=== PATIENT | male | born 1990 | race Caucasian/White ===

== ENCOUNTER 2022-02-16 16:36 | Inpatient (IN) | payer OTHER, SELFPAY ==
[~2022-02-16 16:36] MED LIST: Iopamidol-370 76% 500 ML 1 ML ONE
[2022-02-16] MEDS ORDERED: Ketamine 50 MG/ML (10ML VIAL) ONE (16:44)
[2022-02-16] MEDS ORDERED: Rocuronium Bromide 10 MG/ML (10ML VIAL) ONE ×2 (16:47→18:12)
[2022-02-16 17:00] LABS: Mean Corpuscular HGB CONC 32.8 g/dL (32.0-36.0); Mean Corpuscular Hemoglobin 30.5 pg (27.0-31.0); Mean Corpuscular Volume 93.1 fL (78.0-98.0); Mean Platelet Volume 7.1 fL (7.4-10.4); Platelet Count 307 thou/uL (130-400); Red Blood Cell (RBC) Count 4.93 mill/uL (4.70-6.10); White Blood Cell (WBC) Count 23.8 thou/uL (4.8-10.8)
[2022-02-16] MEDS ORDERED: Propofol 1,000 MG/100 ML VIAL IV ONE (17:03)
[2022-02-16 17:15] LABS: Band 9 % (5-11); Lymphocytes 10 % (21-51); MDiff Complete? YES; Monocytes 7 % (0-10); Neutrophil 73 % (42-75); Platelet Morphology Comment Appears Adequate; RBC Morphology Normal
[2022-02-16 17:20] LABS: ALT (SGPT) 40 U/L (8-55); AST (SGOT) 37 U/L (5-34); Albumin 3.6 g/dL (3.5-5.0); Alkaline Phosphatase 39 U/L (40-110); Anion Gap 13 mmol/L (10-20); BUN (Urea Nitrogen) 19 mg/dL (8.9-20.6); Bilirubin, Total 0.4 mg/dL (0.2-1.2); Calc. Creatinine Clearance 0 mL/min (70-130); Calcium 7.9 mg/dL (7.8-10.44); Carbon Dioxide 22 mmol/L (22-29); Chloride 110 mmol/L (98-107); Globulin 2.3 g/dL (2.4-3.5); Glucose 143 mg/dL (70-105); Potassium 3.6 mmol/L (3.5-5.1); Protein, Total 5.9 g/dL (6.0-8.3); Sodium 141 mmol/L (136-145)
[2022-02-16] MEDS ORDERED: fentaNYL Citrate/PF 100 MCG/2 ML SYRINGE ONE ×2 (17:42→19:29)
[2022-02-16] MEDS ORDERED: Midazolam HCl 2 mg/2 ml Vial ONE (17:42)
[2022-02-16] MEDS ORDERED: Albumin 5% 0 ML ONE (17:53)
[2022-02-16 17:54] LABS: Actual Bicarbonate (HCO3a) 20.1 mEq/L (22-28); Analyzer IN Cardio ER; Base Excess (BEa) -5.5 mEq/L (-2.0 to +3.0); CO2 Tension 39.7 mmHg (35.0-45.0); Calcium, Ionized (arterial) 1.11 mmol/L (1.12-1.30); Carboxyhemoglobin (COHb) 0.3 gm% (0.0-3.0); Hemoglobin (Hb) 14.1 g/dL (14.0-18.0); Potassium - ABG Lab 3.24 mmol/L (3.70-5.30); Puncture Site RBA; pH, Arterial 7.32 (7.35-7.45)
[2022-02-16 17:55] LABS: ALV-art Gradient 114.875 mmHg (0-20)
[2022-02-16] MEDS ORDERED: Dextrose 50% Abboject 50 ML SYRINGE SLOW IVP PRN (18:05)
[2022-02-16] MEDS ORDERED: Ondansetron PF 4 MG/2 ML Vial IVP PRN ×2 (18:05→19:41)
[2022-02-16] MEDS ORDERED: Ondansetron ODT 4 MG TAB PO PRN (18:05)
[2022-02-16] MEDS ORDERED: Dextrose 5% in Water 1,000 ML IV PRN (18:05)
[2022-02-16] MEDS ORDERED: Ondansetron PF 4 MG/2 ML Vial ONE (18:12)
[2022-02-16] MEDS ORDERED: PHENYLEPHRINE-NS 100 MCG/ML 10 ML SYRINGE ONE ×2 (18:12→18:32)
[2022-02-16] MEDS ORDERED: Dexamethasone 20 MG/5 ML VIAL ONE (18:12)
[2022-02-16] MEDS ORDERED: Acetaminophen 325 MG TAB PO SCH (18:15)
[2022-02-16 18:18] LABS: SARS-CoV-2 NAA Rapid Test Not Detected (NotDetected)
[2022-02-16] MEDS ORDERED: Ibuprofen 200 MG TAB PO SCH (18:30)
[2022-02-16] MEDS ORDERED: HYDROcodone/Acetaminophen 10/325 mg Tablet PO SCH ×2 (18:30→23:59)
[2022-02-16] MEDS ORDERED: Heparin 5,000 UNITS/ML VIAL ONE (18:47)
[2022-02-16] MEDS ORDERED: Protamine Sulfate 50 MG/5 ML VIAL ONE (18:48)
[2022-02-16] MEDS ORDERED: HYDROmorphone 2 MG/ML VIAL ONE (19:09)
[2022-02-16] MEDS ORDERED: SUGAMMADEX SODIUM 200 MG/2 ML VIAL ONE (19:10)
[2022-02-16] MEDS ORDERED: diphenhydrAMINE 25 MG CAP PO PRN (19:41)
[2022-02-16] MEDS ORDERED: Promethazine HCl 25 MG/ML VIAL IVPB PRN (19:41)
[2022-02-16] MEDS ORDERED: diphenhydrAMINE 50 MG/ML VIAL IM PRN (19:41)
[2022-02-16] MEDS ORDERED: Ondansetron HCl/PF 4 MG/2 ML Vial IVP PRN (19:41)
[2022-02-16] MEDS ORDERED: diphenhydrAMINE 50 MG/ML VIAL IVP PRN (19:41)
[2022-02-16] MEDS ORDERED: Naloxone HCl 0.4 mg/ml Vial IV PRN (19:41)
[2022-02-16] MEDS ORDERED: Promethazine HCl 25 MG/ML VIAL IM PRN ×2 (19:41)
[2022-02-16] MEDS ORDERED: Communication Order-Pharmacy FS SCH (19:45)
[2022-02-16] MEDS ORDERED: Fentanyl 100 MCG/2 ML VIAL ONE (19:46)
[2022-02-16 21:54] LABS: Hemoglobin 13.5 g/dL (14.0-18.0); Mean Corpuscular HGB CONC 31.9 g/dL (32.0-36.0); Mean Corpuscular Hemoglobin 29.9 pg (27.0-31.0); Mean Corpuscular Volume 93.8 fL (78.0-98.0); Mean Platelet Volume 7.1 fL (7.4-10.4); Platelet Count 342 thou/uL (130-400); White Blood Cell (WBC) Count 23.7 thou/uL (4.8-10.8)
[2022-02-16] MEDS: Lactated Ringer's 1,000 ML IV SCH (21:57)
[2022-02-16] MEDS: Famotidine 20 MG TAB PO SCH (21:58)
[2022-02-16] MEDS: ceFAZolin (BATCH) 2 GM in Premix Bag 1 BAG IVPB SCH (22:04)
[2022-02-16] MEDS: Acetaminophen 325 MG TAB PO SCH (23:17)
[2022-02-16] MEDS: Ibuprofen 200 MG TAB PO SCH (23:17)
[2022-02-17 03:49] LABS: Hemoglobin 12.2 g/dL (14.0-18.0); Mean Corpuscular HGB CONC 32.5 g/dL (32.0-36.0); Mean Corpuscular Hemoglobin 30.2 pg (27.0-31.0); Mean Platelet Volume 7.2 fL (7.4-10.4); Platelet Count 265 thou/uL (130-400); RBC Distribution Width 12.9 % (11.5-14.5); Red Blood Cell (RBC) Count 4.05 mill/uL (4.70-6.10); White Blood Cell (WBC) Count 15.6 thou/uL (4.8-10.8)
[2022-02-17 03:50] LABS: #Lymphocytes 0.7 thou/uL (1.20-3.40); #Monocytes 1.7 thou/uL (0.11-0.59); #Neutrophils 13.4 thou/uL (1.40-6.50); %Eosinophils 0.1 % (0.0-10.0); %Lymphocytes 4.7 % (21.0-51.0); %Monocytes 10.5 % (0.0-10.0); %Neutrophils 84.6 % (42.0-75.0); Hemoglobin 12.1 g/dL (14.0-18.0); Mean Corpuscular HGB CONC 32.6 g/dL (32.0-36.0); Mean Corpuscular Hemoglobin 30.4 pg (27.0-31.0); Mean Corpuscular Volume 93.5 fL (78.0-98.0); Mean Platelet Volume 7.1 fL (7.4-10.4); Platelet Count 256 thou/uL (130-400); RBC Distribution Width 12.8 % (11.5-14.5); Red Blood Cell (RBC) Count 3.97 mill/uL (4.70-6.10); White Blood Cell (WBC) Count 15.9 thou/uL (4.8-10.8)
[2022-02-17 04:10] LABS: Anion Gap 12 mmol/L (10-20); BUN (Urea Nitrogen) 14 mg/dL (8.9-20.6); Calc. Creatinine Clearance 185 mL/min (70-130); Calcium 7.6 mg/dL (7.8-10.44); Carbon Dioxide 18 mmol/L (22-29); Chloride 109 mmol/L (98-107); Glucose 170 mg/dL (70-105); Magnesium 1.6 mg/dL (1.6-2.6); Phosphorus 3.2 mg/dL (2.3-4.7); Potassium 4.4 mmol/L (3.5-5.1); Sodium 135 mmol/L (136-145)
[2022-02-17] MEDS: Ibuprofen 200 MG TAB PO SCH ×4 (05:13→22:59)
[2022-02-17] MEDS: ceFAZolin (BATCH) 2 GM in Premix Bag 1 BAG IVPB SCH ×3 (05:13→22:52)
[2022-02-17] MEDS: Acetaminophen 325 MG TAB PO SCH ×4 (05:14→22:59)
[2022-02-17] MEDS: Lactated Ringer's 1,000 ML IV SCH ×3 (05:14→17:39)
[2022-02-17] MEDS ORDERED: Magnesium 2 GM/50 ML(in water) 2 GM in Premix Bag 1 BAG IVPB SCH (07:15)
[2022-02-17] MEDS ORDERED: Magnesium Sulfate 3 GM in Sodium Chloride 0.9% 100 ML IVPB SCH (09:00)
[2022-02-17] MEDS: Ascorbic Acid 500 mg Chewable Tablet PO SCH ×2 (09:17→20:20)
[2022-02-17] MEDS: Famotidine 20 MG TAB PO SCH ×2 (09:17→20:20)
[2022-02-17] MEDS: Senokot S 8.6-50 MG TAB PER TUBE SCH ×2 (09:18→20:20)
[2022-02-17] MEDS: Gabapentin 300 MG CAP PO SCH ×3 (09:18→20:20)
[2022-02-17] MEDS: traMADol HCl 50 MG TAB PO SCH ×3 (11:37→22:59)
[2022-02-17] MEDS: fentaNYL Citrate/PF 2,000 MCG in Sodium Chloride 0.9% 60 ML IV PRN (17:40)
[2022-02-18] MEDS: Lactated Ringer's 1,000 ML IV SCH ×2 (05:14→13:37)
[2022-02-18] MEDS: ceFAZolin (BATCH) 2 GM in Premix Bag 1 BAG IVPB SCH ×3 (05:48→22:05)
[2022-02-18] MEDS: Ibuprofen 200 MG TAB PO SCH ×4 (05:49→23:41)
[2022-02-18] MEDS: Acetaminophen 325 MG TAB PO SCH ×4 (05:49→23:40)
[2022-02-18] MEDS: traMADol HCl 50 MG TAB PO SCH ×4 (05:49→23:40)
[2022-02-18 05:58] LABS: #Basophils 0.1 thou/uL (0.0-0.2); #Eosinphils 0.1 thou/uL (0.0-0.7); #Lymphocytes 2.1 thou/uL (1.20-3.40); #Monocytes 1.1 thou/uL (0.11-0.59); #Neutrophils 7.4 thou/uL (1.40-6.50); %Basophils 0.5 % (0.0-1.0); %Eosinophils 1.4 % (0.0-10.0); %Lymphocytes 19.4 % (21.0-51.0); %Monocytes 9.8 % (0.0-10.0); %Neutrophils 68.9 % (42.0-75.0); Hemoglobin 9.6 g/dL (14.0-18.0); Mean Corpuscular HGB CONC 32.4 g/dL (32.0-36.0); Mean Corpuscular Hemoglobin 30.2 pg (27.0-31.0); Mean Platelet Volume 7.2 fL (7.4-10.4); Platelet Count 239 thou/uL (130-400); RBC Distribution Width 12.9 % (11.5-14.5); Red Blood Cell (RBC) Count 3.17 mill/uL (4.70-6.10); White Blood Cell (WBC) Count 10.7 thou/uL (4.8-10.8)
[2022-02-18 06:38] LABS: Anion Gap 8 mmol/L (10-20); BUN (Urea Nitrogen) 9 mg/dL (8.9-20.6); Calc. Creatinine Clearance 206 mL/min (70-130); Calcium 8.1 mg/dL (7.8-10.44); Carbon Dioxide 27 mmol/L (22-29); Chloride 106 mmol/L (98-107); Glucose 91 mg/dL (70-105); Magnesium 1.7 mg/dL (1.6-2.6); Phosphorus 2.5 mg/dL (2.3-4.7); Potassium 4.1 mmol/L (3.5-5.1); Sodium 137 mmol/L (136-145)
[2022-02-18] MEDS ORDERED: Magnesium 2 GM/50 ML(in water) 3 GM in Premix Bag 1 BAG IVPB SCH (06:45)
[2022-02-18] MEDS ORDERED: Magnesium Sulfate 3 GM, Admixture Fee 1 EACH in Sodium Chloride 0.9% 100 ML IVPB SCH (07:00)
[2022-02-18] MEDS: Famotidine 20 MG TAB PO SCH ×2 (07:49→20:08)
[2022-02-18] MEDS: Ascorbic Acid 500 mg Chewable Tablet PO SCH ×2 (07:49→20:08)
[2022-02-18] MEDS: Gabapentin 300 MG CAP PO SCH ×3 (07:49→20:09)
[2022-02-18] MEDS: Senokot S 8.6-50 MG TAB PER TUBE SCH ×2 (07:49→20:08)
[2022-02-18] MEDS: Polyethylene Glycol 3350 17 GM Packet PO SCH (07:49)
[2022-02-18] MEDS: traMADol HCl 50 MG TAB PO PRN (15:48)
[2022-02-18] MEDS: fentaNYL Citrate/PF 2,000 MCG in Sodium Chloride 0.9% 60 ML IV PRN (21:25)
[2022-02-19] MEDS: Lactated Ringer's 1,000 ML IV SCH ×2 (00:22→08:23)
[2022-02-19] MEDS: Ibuprofen 200 MG TAB PO SCH ×4 (05:05→23:29)
[2022-02-19] MEDS: traMADol HCl 50 MG TAB PO SCH ×4 (05:05→23:29)
[2022-02-19] MEDS: Acetaminophen 325 MG TAB PO SCH ×2 (05:06→11:29)
[2022-02-19 05:41] LABS: #Eosinphils 0.5 thou/uL (0.0-0.7); #Lymphocytes 1.8 thou/uL (1.20-3.40); #Monocytes 0.8 thou/uL (0.11-0.59); #Neutrophils 5.3 thou/uL (1.40-6.50); %Basophils 0.5 % (0.0-1.0); %Eosinophils 5.7 % (0.0-10.0); %Lymphocytes 21.8 % (21.0-51.0); %Monocytes 9.8 % (0.0-10.0); %Neutrophils 62.2 % (42.0-75.0); Hemoglobin 8.5 g/dL (14.0-18.0); Mean Corpuscular HGB CONC 32.4 g/dL (32.0-36.0); Mean Corpuscular Hemoglobin 30.2 pg (27.0-31.0); Mean Corpuscular Volume 93.3 fL (78.0-98.0); Mean Platelet Volume 6.5 fL (7.4-10.4); Platelet Count 228 thou/uL (130-400); RBC Distribution Width 12.7 % (11.5-14.5); Red Blood Cell (RBC) Count 2.81 mill/uL (4.70-6.10); White Blood Cell (WBC) Count 8.5 thou/uL (4.8-10.8)
[2022-02-19 06:10] LABS: Anion Gap 9 mmol/L (10-20); BUN (Urea Nitrogen) 7 mg/dL (8.9-20.6); Calc. Creatinine Clearance 214 mL/min (70-130); Calcium 8.1 mg/dL (7.8-10.44); Carbon Dioxide 28 mmol/L (22-29); Chloride 107 mmol/L (98-107); Glucose 85 mg/dL (70-105); Magnesium 1.8 mg/dL (1.6-2.6); Phosphorus 3.4 mg/dL (2.3-4.7); Potassium 3.9 mmol/L (3.5-5.1); Sodium 140 mmol/L (136-145)
[2022-02-19] MEDS: Polyethylene Glycol 3350 17 GM Packet PO SCH (08:29)
[2022-02-19] MEDS: Ascorbic Acid 500 mg Chewable Tablet PO SCH ×2 (08:29→19:52)
[2022-02-19] MEDS: Gabapentin 300 MG CAP PO SCH ×3 (08:29→19:51)
[2022-02-19] MEDS: Senokot S 8.6-50 MG TAB PER TUBE SCH ×2 (08:29→19:52)
[2022-02-19] MEDS: Famotidine 20 MG TAB PO SCH ×2 (08:30→19:52)
[2022-02-19] MEDS ORDERED: ceFAZolin (BATCH) 2 GM in Premix Bag 1 BAG IVPB SCH (08:45)
[2022-02-19] MEDS: traMADol HCl 50 MG TAB PO PRN (14:43)
[2022-02-19] MEDS: Acetaminophen 500 MG TAB PO SCH ×2 (17:51→23:28)
[2022-02-20] MEDS ORDERED: Sodium Chloride 0.9% 1,000 ML IV SCH
[2022-02-20] MEDS: traMADol HCl 50 MG TAB PO SCH ×4 (05:16→23:51)
[2022-02-20] MEDS: Acetaminophen 500 MG TAB PO SCH ×4 (05:16→23:51)
[2022-02-20] MEDS: Ibuprofen 200 MG TAB PO SCH ×3 (05:16→18:35)
[2022-02-20 05:19] LABS: #Eosinphils 0.5 thou/uL (0.0-0.7); #Lymphocytes 1.5 thou/uL (1.20-3.40); #Monocytes 0.7 thou/uL (0.11-0.59); #Neutrophils 5.4 thou/uL (1.40-6.50); %Basophils 0.6 % (0.0-1.0); %Eosinophils 6.5 % (0.0-10.0); %Lymphocytes 18.3 % (21.0-51.0); %Monocytes 8.8 % (0.0-10.0); %Neutrophils 65.9 % (42.0-75.0); Hemoglobin 8.6 g/dL (14.0-18.0); Mean Corpuscular HGB CONC 32.6 g/dL (32.0-36.0); Mean Corpuscular Hemoglobin 30.3 pg (27.0-31.0); Mean Platelet Volume 6.3 fL (7.4-10.4); Platelet Count 278 thou/uL (130-400); Red Blood Cell (RBC) Count 2.83 mill/uL (4.70-6.10); White Blood Cell (WBC) Count 8.2 thou/uL (4.8-10.8)
[2022-02-20 05:54] LABS: Anion Gap 10 mmol/L (10-20); BUN (Urea Nitrogen) 8 mg/dL (8.9-20.6); CK (CPK) 1091 U/L (30-200); Calc. Creatinine Clearance 220 mL/min (70-130); Calcium 8.7 mg/dL (7.8-10.44); Carbon Dioxide 27 mmol/L (22-29); Chloride 107 mmol/L (98-107); Glucose 88 mg/dL (70-105); Magnesium 1.6 mg/dL (1.6-2.6); Phosphorus 4.8 mg/dL (2.3-4.7); Potassium 3.9 mmol/L (3.5-5.1); Sodium 140 mmol/L (136-145)
[2022-02-20] MEDS ORDERED: Magnesium Sulfate In Water 4 GM in Premix Bag 1 BAG IVPB SCH (07:30)
[2022-02-20] MEDS: Ascorbic Acid 500 mg Chewable Tablet PO SCH ×2 (08:31→21:10)
[2022-02-20] MEDS: Famotidine 20 MG TAB PO SCH ×2 (08:31→21:10)
[2022-02-20] MEDS: Senokot S 8.6-50 MG TAB PER TUBE SCH ×3 (08:31→21:10)
[2022-02-20] MEDS: Polyethylene Glycol 3350 17 GM Packet PO SCH (08:31)
[2022-02-20] MEDS: Gabapentin 300 MG CAP PO SCH ×3 (08:31→21:09)
[2022-02-20] MEDS ORDERED: Enoxaparin Sodium 40 MG/0.4 ML SYRINGE SC SCH (09:00)
[2022-02-20] MEDS ORDERED: ceFAZolin (BATCH) 2 GM/100 ML BAG ONE (11:57)
[2022-02-20] MEDS ORDERED: HYDROmorphone 0.5 MG/0.5 ML SYRINGE ONE (12:05)
[2022-02-20] MEDS ORDERED: Fentanyl 250 MCG/5 ML VIAL ONE (12:05)
[2022-02-20] MEDS ORDERED: Vecuronium 10 MG VIAL ONE (12:12)
[2022-02-20] MEDS ORDERED: Glycopyrrolate 0.2 MG/ML 5 ML SYRINGE ONE (12:12)
[2022-02-20] MEDS ORDERED: Ketorolac Tromethamine 30 MG/ML VIAL ONE (12:12)
[2022-02-20] MEDS ORDERED: ePHEDrine 50 MG/ML VIAL ONE (12:12)
[2022-02-20] MEDS ORDERED: PHENYLEPHRINE-NS 100 MCG/ML 10 ML SYRINGE ONE (12:12)
[2022-02-20] MEDS ORDERED: Lidocaine 1% PF 5 ML VIAL ONE (12:12)
[2022-02-20] MEDS ORDERED: Ondansetron PF 4 MG/2 ML Vial ONE (12:12)
[2022-02-20] MEDS ORDERED: Dexamethasone 20 MG/5 ML VIAL ONE (12:12)
[2022-02-20] MEDS ORDERED: Metoclopramide HCl 10 MG/2 ML VIAL ONE (12:12)
[2022-02-20] MEDS ORDERED: PROPOFOL 200 MG/20 ML VIAL ONE (12:12)
[2022-02-20] MEDS ORDERED: Rocuronium Bromide 10 MG/ML (10ML VIAL) ONE (12:12)
[2022-02-20] MEDS ORDERED: HYDROmorphone 2 MG/ML VIAL ONE (14:00)
[2022-02-20] MEDS ORDERED: Albumin 5% 500 ML ONE (14:04)
[2022-02-20] MEDS ORDERED: HYDROcodone/Acetaminophen 10/325 mg Tablet PO PRN ×2 (15:58)
[2022-02-20] MEDS ORDERED: Ketorolac Tromethamine 30 MG/ML VIAL IVP SCH (19:45)
[2022-02-20] MEDS: ceFAZolin (BATCH) 2 GM in Premix Bag 1 BAG IVPB SCH (21:10)
[2022-02-20] MEDS: Ketorolac Tromethamine 30 MG/ML VIAL IVP SCH (23:51)
[2022-02-21] MEDS: ceFAZolin (BATCH) 2 GM in Premix Bag 1 BAG IVPB SCH ×3 (03:45→20:37)
[2022-02-21 05:21] LABS: #Monocytes 1.6 thou/uL (0.11-0.59); #Neutrophils 11.4 thou/uL (1.40-6.50); %Basophils 0.1 % (0.0-1.0); %Eosinophils 0.1 % (0.0-10.0); %Lymphocytes 7.3 % (21.0-51.0); %Monocytes 11.3 % (0.0-10.0); %Neutrophils 81.2 % (42.0-75.0); Mean Corpuscular HGB CONC 33.4 g/dL (32.0-36.0); Mean Corpuscular Hemoglobin 30.1 pg (27.0-31.0); Mean Corpuscular Volume 90.2 fL (78.0-98.0); Mean Platelet Volume 7.3 fL (7.4-10.4); Platelet Count 322 thou/uL (130-400); RBC Distribution Width 16.9 % (11.5-14.5); Red Blood Cell (RBC) Count 2.64 mill/uL (4.70-6.10)
[2022-02-21 05:34] LABS: Phosphorus 3.9 mg/dL (2.3-4.7)
[2022-02-21 05:38] LABS: Anion Gap 11 mmol/L (10-20); BUN (Urea Nitrogen) 10 mg/dL (8.9-20.6); CK (CPK) 1472 U/L (30-200); Calc. Creatinine Clearance 208 mL/min (70-130); Calcium 8.2 mg/dL (7.8-10.44); Carbon Dioxide 26 mmol/L (22-29); Chloride 104 mmol/L (98-107); Glucose 116 mg/dL (70-105); Magnesium 2.1 mg/dL (1.6-2.6); Potassium 4.3 mmol/L (3.5-5.1); Sodium 137 mmol/L (136-145)
[2022-02-21] MEDS: traMADol HCl 50 MG TAB PO SCH ×3 (06:14→17:27)
[2022-02-21] MEDS: Acetaminophen 500 MG TAB PO SCH ×3 (06:15→17:19)
[2022-02-21] MEDS: Ketorolac Tromethamine 30 MG/ML VIAL IVP SCH ×3 (06:15→17:17)
[2022-02-21] MEDS ORDERED: Enoxaparin Sodium 40 MG/0.4 ML SYRINGE SC SCH (09:00)
[2022-02-21] MEDS: Gabapentin 300 MG CAP PO SCH ×3 (09:37→20:37)
[2022-02-21] MEDS: Famotidine 20 MG TAB PO SCH ×2 (09:37→20:36)
[2022-02-21] MEDS: Ascorbic Acid 500 mg Chewable Tablet PO SCH ×2 (09:38→20:36)
[2022-02-21] MEDS: Polyethylene Glycol 3350 17 GM Packet PO SCH (09:39)
[2022-02-21] MEDS: Senokot S 8.6-50 MG TAB PER TUBE SCH ×2 (09:39→20:37)
[2022-02-21] MEDS: fentaNYL Citrate/PF 2,000 MCG in Sodium Chloride 0.9% 60 ML IV PRN (16:38)
[2022-02-22] MEDS: traMADol HCl 50 MG TAB PO SCH ×5 (00:35→23:45)
[2022-02-22] MEDS: Acetaminophen 500 MG TAB PO SCH ×5 (00:35→23:45)
[2022-02-22] MEDS: Ketorolac Tromethamine 30 MG/ML VIAL IVP SCH ×5 (00:35→23:45)
[2022-02-22] MEDS: ceFAZolin (BATCH) 2 GM in Premix Bag 1 BAG IVPB SCH ×3 (03:54→20:52)
[2022-02-22 06:33] LABS: #Basophils 0.1 thou/uL (0.0-0.2); #Eosinphils 0.3 thou/uL (0.0-0.7); #Lymphocytes 3.2 thou/uL (1.20-3.40); #Monocytes 1.6 thou/uL (0.11-0.59); #Neutrophils 9.3 thou/uL (1.40-6.50); %Basophils 0.4 % (0.0-1.0); %Eosinophils 2.1 % (0.0-10.0); %Lymphocytes 21.9 % (21.0-51.0); %Monocytes 11.2 % (0.0-10.0); %Neutrophils 64.5 % (42.0-75.0); Hemoglobin 6.9 g/dL (14.0-18.0); MDiff Complete? YES; Mean Corpuscular HGB CONC 32.1 g/dL (32.0-36.0); Mean Corpuscular Hemoglobin 30.2 pg (27.0-31.0); Mean Corpuscular Volume 94.1 fL (78.0-98.0); Mean Platelet Volume 6.3 fL (7.4-10.4); Platelet Count 341 thou/uL (130-400); Platelet Morphology Comment Appears Adequate; Polychromasia SLIGHT = 2-3 cells (100X) (0-2/hpf); RBC Distribution Width 14.9 % (11.5-14.5); Red Blood Cell (RBC) Count 2.27 mill/uL (4.70-6.10); White Blood Cell (WBC) Count 14.5 thou/uL (4.8-10.8)
[2022-02-22] MEDS: Morphine 2 MG/ML VIAL SLOW IVP PRN ×2 (10:14→11:28)
[2022-02-22] MEDS: Ascorbic Acid 500 mg Chewable Tablet PO SCH ×2 (10:19→20:53)
[2022-02-22] MEDS: Senokot S 8.6-50 MG TAB PER TUBE SCH ×2 (10:19→20:54)
[2022-02-22] MEDS: Famotidine 20 MG TAB PO SCH ×2 (10:19→20:53)
[2022-02-22] MEDS: Polyethylene Glycol 3350 17 GM Packet PO SCH (10:19)
[2022-02-22] MEDS: Gabapentin 300 MG CAP PO SCH ×3 (10:20→20:54)
[2022-02-22] MEDS ORDERED: Mineral Oil ENEMA PR SCH (12:45)
[2022-02-22] MEDS: Magnesium Citrate 300 ML BOT PO SCH ×2 (13:28→15:11)
[2022-02-22 13:52] LABS: Hemoglobin 7.1 g/dL (14.0-18.0); Mean Corpuscular HGB CONC 32.9 g/dL (32.0-36.0); Mean Corpuscular Hemoglobin 30.7 pg (27.0-31.0); Mean Corpuscular Volume 93.3 fL (78.0-98.0); Mean Platelet Volume 6.1 fL (7.4-10.4); Platelet Count 317 thou/uL (130-400); RBC Distribution Width 14.2 % (11.5-14.5); Red Blood Cell (RBC) Count 2.32 mill/uL (4.70-6.10); White Blood Cell (WBC) Count 12.8 thou/uL (4.8-10.8)
[2022-02-22 14:08] LABS: Band 5 % (5-11); Eosinophils 5 % (0-10); Lymphocytes 10 % (21-51); MDiff Complete? YES; Metamyelocyte 2 % (0-0); Monocytes 10 % (0-10); Myelocyte 1 % (0-0); Neutrophil 66 % (42-75); Platelet Morphology Comment Appears Adequate; Polychromasia MODERATE = 3-4 cells (100X) (0-2/hpf)
[2022-02-23] MEDS: traMADol HCl 50 MG TAB PO SCH ×4 (05:00→23:42)
[2022-02-23] MEDS: ceFAZolin (BATCH) 2 GM in Premix Bag 1 BAG IVPB SCH ×3 (05:00→20:06)
[2022-02-23] MEDS: Ketorolac Tromethamine 30 MG/ML VIAL IVP SCH ×4 (05:00→23:42)
[2022-02-23] MEDS: Acetaminophen 500 MG TAB PO SCH ×3 (05:00→17:28)
[2022-02-23] MEDS: Famotidine 20 MG TAB PO SCH ×2 (08:15→20:05)
[2022-02-23] MEDS: Gabapentin 300 MG CAP PO SCH ×3 (08:16→20:04)
[2022-02-23] MEDS: Ascorbic Acid 500 mg Chewable Tablet PO SCH ×2 (08:16→20:03)
[2022-02-23] MEDS: Senokot S 8.6-50 MG TAB PER TUBE SCH ×2 (08:16→20:04)
[2022-02-23] MEDS: Enoxaparin Sodium 40 MG/0.4 ML SYRINGE SC SCH (08:16)
[2022-02-23] MEDS: Polyethylene Glycol 3350 17 GM Packet PO SCH (08:17)
[2022-02-23 08:54] LABS: Anion Gap 14 mmol/L (10-20); BUN (Urea Nitrogen) 15 mg/dL (8.9-20.6); Calc. Creatinine Clearance 214 mL/min (70-130); Calcium 8.7 mg/dL (7.8-10.44); Carbon Dioxide 23 mmol/L (22-29); Chloride 105 mmol/L (98-107); Glucose 89 mg/dL (70-105); Magnesium 1.9 mg/dL (1.6-2.6); Phosphorus 3.6 mg/dL (2.3-4.7); Potassium 4.1 mmol/L (3.5-5.1); Sodium 138 mmol/L (136-145)
[2022-02-23 09:11] LABS: Band 9 % (5-11); Eosinophils 3 % (0-10); Hemoglobin 8.7 g/dL (14.0-18.0); Hypochromia SLIGHT = 6-15 cells (100X) (0-5/hpf); Lymphocytes 13 % (21-51); MDiff Complete? YES; Mean Corpuscular HGB CONC 31.9 g/dL (32.0-36.0); Mean Corpuscular Hemoglobin 29.8 pg (27.0-31.0); Mean Corpuscular Volume 93.6 fL (78.0-98.0); Mean Platelet Volume 6.3 fL (7.4-10.4); Metamyelocyte 2 % (0-0); Monocytes 9 % (0-10); Myelocyte 3 % (0-0); Neutrophil 61 % (42-75); Nucleated RBC 2 % (0); Platelet Count 396 thou/uL (130-400); Platelet Morphology Comment Appears Adequate; Polychromasia MODERATE = 3-4 cells (100X) (0-2/hpf); RBC Distribution Width 13.9 % (11.5-14.5); Red Blood Cell (RBC) Count 2.92 mill/uL (4.70-6.10); White Blood Cell (WBC) Count 18.9 thou/uL (4.8-10.8)
[2022-02-23] MEDS: Morphine 2 MG/ML VIAL SLOW IVP PRN ×2 (10:38→10:39)
[2022-02-23] MEDS: Cyclobenzaprine 10 MG TAB PO PRN ×2 (10:39→18:24)
[2022-02-23 16:07] LABS: SARS-CoV-2 PCR by NAA Not Detected (NotDetected)
[2022-02-23] MEDS ORDERED: Acetaminophen/Codeine 30-300mg Tablet PO SCH (18:45)
[2022-02-24] MEDS: Acetaminophen/Codeine 30-300mg Tablet PO SCH ×2 (01:07→05:18)
[2022-02-24] MEDS: Cyclobenzaprine 10 MG TAB PO PRN (01:08)
[2022-02-24] MEDS: ceFAZolin (BATCH) 2 GM in Premix Bag 1 BAG IVPB SCH ×3 (05:17→23:21)
[2022-02-24] MEDS: traMADol HCl 50 MG TAB PO SCH ×3 (05:17→17:48)
[2022-02-24 05:40] LABS: Band 8 % (5-11); Eosinophils 3 % (0-10); Hemoglobin 8.1 g/dL (14.0-18.0); Lymphocytes 10 % (21-51); MDiff Complete? YES; Mean Corpuscular HGB CONC 33.1 g/dL (32.0-36.0); Mean Corpuscular Volume 93.6 fL (78.0-98.0); Mean Platelet Volume 6.1 fL (7.4-10.4); Metamyelocyte 2 % (0-0); Monocytes 8 % (0-10); Myelocyte 1 % (0-0); Neutrophil 68 % (42-75); Nucleated RBC 1 % (0); Platelet Count 363 thou/uL (130-400); Polychromasia SLIGHT = 2-3 cells (100X) (0-2/hpf); RBC Distribution Width 14.3 % (11.5-14.5); Red Blood Cell (RBC) Count 2.62 mill/uL (4.70-6.10); White Blood Cell (WBC) Count 14.3 thou/uL (4.8-10.8)
[2022-02-24] MEDS: Morphine 2 MG/ML VIAL SLOW IVP PRN ×2 (09:13→12:57)
[2022-02-24] MEDS: Famotidine 20 MG TAB PO SCH ×2 (09:18→23:15)
[2022-02-24] MEDS: Ascorbic Acid 500 mg Chewable Tablet PO SCH ×2 (09:18→23:15)
[2022-02-24] MEDS: Gabapentin 300 MG CAP PO SCH ×3 (09:20→23:15)
[2022-02-24] MEDS: Polyethylene Glycol 3350 17 GM Packet PO SCH (09:21)
[2022-02-24] MEDS: Enoxaparin Sodium 40 MG/0.4 ML SYRINGE SC SCH (09:21)
[2022-02-24] MEDS: Senokot S 8.6-50 MG TAB PER TUBE SCH ×2 (09:21→23:14)
[2022-02-24] MEDS ORDERED: Acetaminophen/Codeine 30-300mg Tablet PO PRN ×2 (09:30)
[2022-02-24] MEDS ORDERED: Fentanyl 100 MCG/2 ML VIAL ONE (17:45)
[2022-02-24] MEDS ORDERED: ceFAZolin (BATCH) 2 GM/100 ML BAG ONE (19:54)
[2022-02-24] MEDS ORDERED: Ibuprofen 200 MG TAB PO SCH (20:00)
[2022-02-24] MEDS ORDERED: Fentanyl 250 MCG/5 ML VIAL ONE (20:11)
[2022-02-24] MEDS ORDERED: Ondansetron PF 4 MG/2 ML Vial ONE (20:23)
[2022-02-24] MEDS ORDERED: Ketorolac Tromethamine 30 MG/ML VIAL ONE (20:23)
[2022-02-24] MEDS ORDERED: Dexamethasone 20 MG/5 ML VIAL ONE (20:23)
[2022-02-24] MEDS ORDERED: Lidocaine 1% PF 5 ML VIAL ONE (20:23)
[2022-02-24] MEDS ORDERED: PROPOFOL 200 MG/20 ML VIAL ONE (20:23)
[2022-02-24] MEDS ORDERED: Midazolam HCl 2 mg/2 ml Vial ONE (20:37)
[2022-02-24] MEDS ORDERED: Neomycin-Polymyxin 1 ML AMP ONE ×2 (20:44→21:13)
[2022-02-24] MEDS ORDERED: Dexmedetomidine 200 MCG/2 ML VIAL ONE (21:51)
[2022-02-24] MEDS ORDERED: Meperidine HCl/PF 25 MG/ML VIAL ONE (22:25)
[2022-02-24] MEDS ORDERED: PACU-Morphine 4MG/ML VIAL SLOW IVP PRN (22:25)
[2022-02-24] MEDS ORDERED: HYDROmorphone 2 MG/ML VIAL SLOW IVP PRN (22:25)
[2022-02-24] MEDS ORDERED: Ondansetron HCl/PF 4 MG/2 ML Vial IVP PRN (22:25)
[2022-02-24] MEDS ORDERED: Morphine Sulfate 2 MG/ML SYRINGE SLOW IVP PRN (22:25)
[2022-02-24] MEDS ORDERED: Promethazine HCl 25 MG/ML VIAL IM PRN ×2 (22:25→22:26)
[2022-02-24] MEDS ORDERED: Promethazine HCl 25 MG/ML VIAL IVPB PRN (22:25)
[2022-02-24] MEDS ORDERED: Meperidine HCl/PF 25 MG/ML VIAL SLOW IVP PRN (22:25)
[2022-02-24] MEDS ORDERED: HYDROmorphone 10 mg/100 ml CADD IVPB PRN (22:26)
[2022-02-24] MEDS ORDERED: diphenhydrAMINE 25 MG CAP PO PRN (22:26)
[2022-02-24] MEDS ORDERED: diphenhydrAMINE 50 MG/ML VIAL IVP PRN (22:26)
[2022-02-24] MEDS ORDERED: Naloxone HCl 0.4 mg/ml Vial IV PRN (22:26)
[2022-02-24] MEDS ORDERED: diphenhydrAMINE 50 MG/ML VIAL IM PRN (22:26)
[2022-02-24] MEDS ORDERED: Ondansetron PF 4 MG/2 ML Vial IVP PRN (22:26)
[2022-02-24] MEDS ORDERED: Communication Order-Pharmacy FS SCH (22:30)
[2022-02-24] MEDS: Albuterol Sulfate 2.5 mg/3 ml Neb NEB SCH (23:54)
[2022-02-25] MEDS: Vancomycin HCl 1.5 GM in Sodium Chloride 0.9% 250 ML 300 ML IVPB SCH ×3 (00:55→17:07)
[2022-02-25] MEDS: ceFAZolin (BATCH) 2 GM in Premix Bag 1 BAG IVPB SCH (04:19)
[2022-02-25] MEDS: Ibuprofen 200 MG TAB PO SCH ×3 (05:14→21:16)
[2022-02-25 05:57] LABS: Hemoglobin 10.4 g/dL (14.0-18.0); Mean Corpuscular HGB CONC 32.8 g/dL (32.0-36.0); Mean Corpuscular Hemoglobin 30.1 pg (27.0-31.0); Mean Corpuscular Volume 91.6 fL (78.0-98.0); Mean Platelet Volume 6.1 fL (7.4-10.4); Platelet Count 415 thou/uL (130-400); RBC Distribution Width 15.5 % (11.5-14.5); Red Blood Cell (RBC) Count 3.46 mill/uL (4.70-6.10); White Blood Cell (WBC) Count 17.5 thou/uL (4.8-10.8)
[2022-02-25 06:00] LABS: Anion Gap 14 mmol/L (10-20); BUN (Urea Nitrogen) 15 mg/dL (8.9-20.6); CRP (Inflammatory) 14.83 mg/dL (= or < 0.5); Calc. Creatinine Clearance 196 mL/min (70-130); Carbon Dioxide 25 mmol/L (22-29); Chloride 102 mmol/L (98-107); Glucose 146 mg/dL (70-105); Potassium 4.8 mmol/L (3.5-5.1); Sodium 136 mmol/L (136-145)
[2022-02-25 06:22] LABS: Band 15 % (5-11); Lymphocytes 8 % (21-51); MDiff Complete? YES; Monocytes 3 % (0-10); Neutrophil 74 % (42-75)
[2022-02-25] MEDS: Albuterol Sulfate 2.5 mg/3 ml Neb NEB SCH ×3 (06:51→18:54)
[2022-02-25] MEDS: Senokot S 8.6-50 MG TAB PER TUBE SCH ×2 (09:51→21:15)
[2022-02-25] MEDS: Gabapentin 300 MG CAP PO SCH ×3 (09:51→21:15)
[2022-02-25] MEDS: Cyclobenzaprine 10 MG TAB PO PRN (09:51)
[2022-02-25] MEDS: Enoxaparin Sodium 40 MG/0.4 ML SYRINGE SC SCH (09:51)
[2022-02-25] MEDS: Famotidine 20 MG TAB PO SCH ×2 (09:51→21:15)
[2022-02-25] MEDS: Ascorbic Acid 500 mg Chewable Tablet PO SCH ×2 (09:52→21:15)
[2022-02-25] MEDS ORDERED: Morphine 2 MG/ML VIAL SLOW IVP PRN (12:16)
[2022-02-25] MEDS ORDERED: traMADol HCl 50 MG TAB PO PRN (12:17)
[2022-02-25] MEDS: Polyethylene Glycol 3350 17 GM Packet PO SCH (13:55)
[2022-02-25] MEDS: Acetaminophen/Codeine 30-300mg Tablet PO SCH ×3 (13:55→21:17)
[2022-02-25 15:08] LABS: #Eosinphils 0.1 thou/uL (0.0-0.7); #Lymphocytes 1.4 thou/uL (1.20-3.40); #Monocytes 1.6 thou/uL (0.11-0.59); #Neutrophils 13.5 thou/uL (1.40-6.50); %Basophils 0.3 % (0.0-1.0); %Eosinophils 0.6 % (0.0-10.0); %Lymphocytes 8.6 % (21.0-51.0); %Monocytes 9.7 % (0.0-10.0); %Neutrophils 80.8 % (42.0-75.0); Hemoglobin 9.3 g/dL (14.0-18.0); Mean Corpuscular Hemoglobin 29.3 pg (27.0-31.0); Mean Corpuscular Volume 91.3 fL (78.0-98.0); Mean Platelet Volume 5.9 fL (7.4-10.4); Platelet Count 394 thou/uL (130-400); Red Blood Cell (RBC) Count 3.19 mill/uL (4.70-6.10); White Blood Cell (WBC) Count 16.7 thou/uL (4.8-10.8)
[2022-02-25] MEDS: Zolpidem Tartrate 5 MG TAB PO PRN (23:16)
[2022-02-25 23:30] LABS: Vancomycin, Trough 14.1 ug/mL
[2022-02-26] MEDS: Vancomycin HCl 1.5 GM in Sodium Chloride 0.9% 250 ML 300 ML IVPB SCH ×3 (01:09→17:25)
[2022-02-26] MEDS: Acetaminophen/Codeine 30-300mg Tablet PO SCH ×6 (01:09→21:26)
[2022-02-26] MEDS: Albuterol Sulfate 2.5 mg/3 ml Neb NEB SCH ×3 (01:26→14:34)
[2022-02-26] MEDS: Ibuprofen 200 MG TAB PO SCH ×3 (05:18→21:24)
[2022-02-26 05:25] LABS: #Basophils 0.1 thou/uL (0.0-0.2); #Eosinphils 0.3 thou/uL (0.0-0.7); #Lymphocytes 2.5 thou/uL (1.20-3.40); #Monocytes 1.2 thou/uL (0.11-0.59); #Neutrophils 10.2 thou/uL (1.40-6.50); %Basophils 0.4 % (0.0-1.0); %Eosinophils 2.3 % (0.0-10.0); %Lymphocytes 17.5 % (21.0-51.0); %Monocytes 8.7 % (0.0-10.0); %Neutrophils 71.1 % (42.0-75.0); Hemoglobin 9.4 g/dL (14.0-18.0); Mean Corpuscular HGB CONC 32.5 g/dL (32.0-36.0); Mean Corpuscular Hemoglobin 30.2 pg (27.0-31.0); Mean Corpuscular Volume 93.1 fL (78.0-98.0); Mean Platelet Volume 6.2 fL (7.4-10.4); Platelet Count 412 thou/uL (130-400); Red Blood Cell (RBC) Count 3.11 mill/uL (4.70-6.10); White Blood Cell (WBC) Count 14.3 thou/uL (4.8-10.8)
[2022-02-26] MEDS: Polyethylene Glycol 3350 17 GM Packet PO SCH ×2 (09:04→09:09)
[2022-02-26] MEDS: Famotidine 20 MG TAB PO SCH ×2 (09:05→21:26)
[2022-02-26] MEDS: Ascorbic Acid 500 mg Chewable Tablet PO SCH ×2 (09:05→21:26)
[2022-02-26] MEDS: Gabapentin 300 MG CAP PO SCH ×3 (09:05→21:25)
[2022-02-26] MEDS: Enoxaparin Sodium 40 MG/0.4 ML SYRINGE SC SCH (09:06)
[2022-02-26] MEDS: Senokot S 8.6-50 MG TAB PER TUBE SCH ×2 (09:06→21:26)
[2022-02-26] MEDS: Cyclobenzaprine 10 MG TAB PO PRN (13:06)
[2022-02-26] MEDS: Morphine 4 MG/ML VIAL SLOW IVP SCH (14:28)
[2022-02-26] MEDS ORDERED: Albuterol Sulfate 2.5 mg/3 ml Neb NEB PRN (14:55)
[2022-02-26 15:38] LABS: #Basophils 0.1 thou/uL (0.0-0.2); #Eosinphils 0.3 thou/uL (0.0-0.7); #Lymphocytes 2.5 thou/uL (1.20-3.40); #Monocytes 1.2 thou/uL (0.11-0.59); #Neutrophils 9.4 thou/uL (1.40-6.50); %Basophils 0.5 % (0.0-1.0); %Eosinophils 2.1 % (0.0-10.0); %Lymphocytes 18.6 % (21.0-51.0); %Neutrophils 69.8 % (42.0-75.0); Hemoglobin 9.7 g/dL (14.0-18.0); Mean Corpuscular Volume 93.7 fL (78.0-98.0); Mean Platelet Volume 5.8 fL (7.4-10.4); Platelet Count 438 thou/uL (130-400); RBC Distribution Width 15.8 % (11.5-14.5); Red Blood Cell (RBC) Count 3.25 mill/uL (4.70-6.10); White Blood Cell (WBC) Count 13.5 thou/uL (4.8-10.8)
[2022-02-26] MEDS: Zolpidem Tartrate 5 MG TAB PO PRN (21:33)
[2022-02-26 23:23] LABS: Vancomycin, Trough 14.5 ug/mL
[2022-02-27] MEDS: Vancomycin HCl 1.5 GM in Sodium Chloride 0.9% 250 ML 300 ML IVPB SCH ×3 (00:36→16:16)
[2022-02-27] MEDS: Acetaminophen/Codeine 30-300mg Tablet PO SCH ×6 (00:36→22:44)
[2022-02-27] MEDS: Ibuprofen 200 MG TAB PO SCH ×3 (06:01→22:22)
[2022-02-27 06:25] LABS: #Basophils 0.1 thou/uL (0.0-0.2); #Eosinphils 0.7 thou/uL (0.0-0.7); #Lymphocytes 1.8 thou/uL (1.20-3.40); #Monocytes 1.1 thou/uL (0.11-0.59); #Neutrophils 8.8 thou/uL (1.40-6.50); %Basophils 0.4 % (0.0-1.0); %Eosinophils 5.5 % (0.0-10.0); %Lymphocytes 14.1 % (21.0-51.0); Mean Corpuscular HGB CONC 32.1 g/dL (32.0-36.0); Mean Corpuscular Hemoglobin 30.2 pg (27.0-31.0); Mean Corpuscular Volume 94.1 fL (78.0-98.0); Mean Platelet Volume 5.8 fL (7.4-10.4); Platelet Count 414 thou/uL (130-400); RBC Distribution Width 15.8 % (11.5-14.5); Red Blood Cell (RBC) Count 3.31 mill/uL (4.70-6.10); White Blood Cell (WBC) Count 12.4 thou/uL (4.8-10.8)
[2022-02-27] MEDS: Morphine 4 MG/ML VIAL SLOW IVP SCH (09:30)
[2022-02-27] MEDS: Ascorbic Acid 500 mg Chewable Tablet PO SCH ×2 (09:35→22:24)
[2022-02-27] MEDS: Enoxaparin Sodium 40 MG/0.4 ML SYRINGE SC SCH (09:35)
[2022-02-27] MEDS: Polyethylene Glycol 3350 17 GM Packet PO SCH (09:36)
[2022-02-27] MEDS: Senokot S 8.6-50 MG TAB PER TUBE SCH ×2 (09:36→22:24)
[2022-02-27] MEDS: Gabapentin 300 MG CAP PO SCH ×3 (09:36→22:23)
[2022-02-27] MEDS: Famotidine 20 MG TAB PO SCH ×2 (09:36→22:24)
[2022-02-27] MEDS ORDERED: fentaNYL Citrate/PF 100 MCG/2 ML SYRINGE ONE (16:26)
[2022-02-27] MEDS ORDERED: Thrombin 5000 UNITS/5 ML VIAL ONE (17:06)
[2022-02-27] MEDS ORDERED: Neomycin-Polymyxin 1 ML AMP ONE (17:06)
[2022-02-27] MEDS ORDERED: Bacitracin Zinc Ointment 30 gm TUBE ONE (17:06)
[2022-02-27] MEDS ORDERED: Bupivacaine PF 0.5% 30 ML VIAL ONE (17:06)
[2022-02-27] MEDS ORDERED: Mineral Oil Sterile 10 ML VIAL ONE (17:06)
[2022-02-27] MEDS ORDERED: Tobramycin/dex OPTH 2.5 ML BOT ONE (17:08)
[2022-02-27] MEDS ORDERED: Tobramycin Sulfate 1.2 GM VIAL ONE (17:08)
[2022-02-27] MEDS ORDERED: Fentanyl 100 MCG/2 ML VIAL ONE (17:10)
[2022-02-27] MEDS ORDERED: Midazolam HCl 2 mg/2 ml Vial ONE (17:10)
[2022-02-27] MEDS ORDERED: Lidocaine 2% Jelly 5 ML TUBE ONE (17:31)
[2022-02-27] MEDS ORDERED: Ondansetron PF 4 MG/2 ML Vial ONE (17:59)
[2022-02-27] MEDS ORDERED: Lidocaine 1% PF 5 ML VIAL ONE (17:59)
[2022-02-27] MEDS ORDERED: Ketorolac Tromethamine 10 MG TAB ONE (17:59)
[2022-02-27] MEDS ORDERED: Dexamethasone 20 MG/5 ML VIAL ONE (17:59)
[2022-02-27] MEDS ORDERED: PROPOFOL 200 MG/20 ML VIAL ONE (17:59)
[2022-02-27] MEDS ORDERED: HYDROmorphone 2 MG/ML VIAL ONE (18:49)
[2022-02-27] MEDS ORDERED: Promethazine HCl 25 MG/ML VIAL IVPB PRN (20:03)
[2022-02-27] MEDS ORDERED: Ondansetron HCl/PF 4 MG/2 ML Vial IVP PRN (20:03)
[2022-02-27] MEDS ORDERED: HYDROmorphone 2 MG/ML VIAL SLOW IVP PRN (20:03)
[2022-02-27] MEDS ORDERED: Promethazine HCl 25 MG/ML VIAL IM PRN ×2 (20:03→21:11)
[2022-02-27] MEDS ORDERED: diphenhydrAMINE 25 MG CAP PO PRN (21:11)
[2022-02-27] MEDS ORDERED: Ondansetron PF 4 MG/2 ML Vial IVP PRN (21:11)
[2022-02-27] MEDS ORDERED: Naloxone HCl 0.4 mg/ml Vial IV PRN (21:11)
[2022-02-27] MEDS ORDERED: diphenhydrAMINE 50 MG/ML VIAL IVP PRN (21:11)
[2022-02-27] MEDS ORDERED: diphenhydrAMINE 50 MG/ML VIAL IM PRN (21:11)
[2022-02-27] MEDS ORDERED: Communication Order-Pharmacy FS SCH (21:15)
[2022-02-27] MEDS: HYDROmorphone 10 mg/100 ml CADD IVPB PRN (21:49)
[2022-02-27] MEDS: Cyclobenzaprine 10 MG TAB PO PRN (22:28)
[2022-02-28] MEDS: Vancomycin HCl 1.5 GM in Sodium Chloride 0.9% 250 ML 300 ML IVPB SCH ×3 (00:05→17:00)
[2022-02-28 05:28] LABS: #Eosinphils 0.1 thou/uL (0.0-0.7); #Monocytes 0.6 thou/uL (0.11-0.59); #Neutrophils 16.2 thou/uL (1.40-6.50); %Basophils 0.1 % (0.0-1.0); %Eosinophils 0.5 % (0.0-10.0); %Lymphocytes 5.6 % (21.0-51.0); %Monocytes 3.3 % (0.0-10.0); %Neutrophils 90.5 % (42.0-75.0); Hemoglobin 10.4 g/dL (14.0-18.0); Mean Corpuscular HGB CONC 31.9 g/dL (32.0-36.0); Mean Corpuscular Hemoglobin 29.6 pg (27.0-31.0); Mean Corpuscular Volume 92.8 fL (78.0-98.0); Mean Platelet Volume 5.9 fL (7.4-10.4); Platelet Count 546 thou/uL (130-400); RBC Distribution Width 15.7 % (11.5-14.5); Red Blood Cell (RBC) Count 3.52 mill/uL (4.70-6.10); White Blood Cell (WBC) Count 17.8 thou/uL (4.8-10.8)
[2022-02-28] MEDS: Ibuprofen 200 MG TAB PO SCH (06:00)
[2022-02-28 07:53] LABS: Vancomycin, Trough 15.8 ug/mL
[2022-02-28] MEDS ORDERED: Piperacillin/Tazobactam 3.375 GM in Sodium Chloride 0.9% 100 ML IVPB SCH ×2 (08:00→12:00)
[2022-02-28] MEDS: Enoxaparin Sodium 40 MG/0.4 ML SYRINGE SC SCH (10:45)
[2022-02-28] MEDS: Gabapentin 300 MG CAP PO SCH (10:46)
[2022-02-28] MEDS: Famotidine 20 MG TAB PO SCH ×2 (10:46→21:11)
[2022-02-28] MEDS: Senokot S 8.6-50 MG TAB PER TUBE SCH ×2 (11:02→21:18)
[2022-02-28] MEDS: Polyethylene Glycol 3350 17 GM Packet PO SCH (11:02)
[2022-02-28] MEDS: Ascorbic Acid 500 mg Chewable Tablet PO SCH (11:23)
[2022-02-28] MEDS: Ketorolac Tromethamine 30 MG/ML VIAL IVP SCH ×3 (13:04→23:31)
[2022-02-28] MEDS: Cyclobenzaprine 10 MG TAB PO PRN ×2 (15:33→21:11)
[2022-02-28] MEDS: Pregabalin 50 MG CAP PO SCH (21:10)
[2022-02-28] MEDS: Zolpidem Tartrate 5 MG TAB PO PRN (23:29)
[2022-02-28] MEDS: Vancomycin 1.5 GRAM/300 ML BAG 1.5 GM in Premix Bag 1 BAG IVPB SCH (23:55)
[2022-03-01] MEDS: Ketorolac Tromethamine 30 MG/ML VIAL IVP SCH ×4 (05:29→17:18)
[2022-03-01] MEDS: Cyclobenzaprine 10 MG TAB PO PRN ×2 (05:30→21:08)
[2022-03-01 05:46] LABS: Calc. Creatinine Clearance 184 mL/min (70-130)
[2022-03-01 06:48] LABS: #Basophils 0.1 thou/uL (0.0-0.2); #Eosinphils 0.3 thou/uL (0.0-0.7); #Lymphocytes 2.1 thou/uL (1.20-3.40); #Neutrophils 10.6 thou/uL (1.40-6.50); %Basophils 0.5 % (0.0-1.0); %Eosinophils 2.3 % (0.0-10.0); %Lymphocytes 14.6 % (21.0-51.0); %Monocytes 7.3 % (0.0-10.0); %Neutrophils 75.3 % (42.0-75.0); Hemoglobin 9.6 g/dL (14.0-18.0); Mean Corpuscular HGB CONC 31.5 g/dL (32.0-36.0); Mean Corpuscular Hemoglobin 29.5 pg (27.0-31.0); Mean Corpuscular Volume 93.5 fL (78.0-98.0); Mean Platelet Volume 6.1 fL (7.4-10.4); Platelet Count 492 thou/uL (130-400); RBC Distribution Width 15.8 % (11.5-14.5); Red Blood Cell (RBC) Count 3.25 mill/uL (4.70-6.10); White Blood Cell (WBC) Count 14.1 thou/uL (4.8-10.8)
[2022-03-01] MEDS: Pregabalin 50 MG CAP PO SCH ×2 (08:49→21:02)
[2022-03-01] MEDS: Enoxaparin Sodium 40 MG/0.4 ML SYRINGE SC SCH (08:49)
[2022-03-01] MEDS: Famotidine 20 MG TAB PO SCH ×2 (08:49→21:02)
[2022-03-01] MEDS: Vancomycin 1.5 GRAM/300 ML BAG 1.5 GM in Premix Bag 1 BAG IVPB SCH ×2 (08:49→16:29)
[2022-03-01] MEDS: Senokot S 8.6-50 MG TAB PER TUBE SCH ×2 (08:50→21:03)
[2022-03-01] MEDS: Polyethylene Glycol 3350 17 GM Packet PO SCH (08:50)
[2022-03-01 21:50] LABS: SARS-CoV-2 PCR by NAA Not Detected (NotDetected)
[2022-03-02 06:06] LABS: #Basophils 0.1 thou/uL (0.0-0.2); #Eosinphils 0.3 thou/uL (0.0-0.7); #Lymphocytes 1.3 thou/uL (1.20-3.40); #Neutrophils 8.8 thou/uL (1.40-6.50); %Basophils 0.5 % (0.0-1.0); %Eosinophils 2.8 % (0.0-10.0); %Lymphocytes 11.6 % (21.0-51.0); %Neutrophils 76.1 % (42.0-75.0); Mean Corpuscular HGB CONC 32.8 g/dL (32.0-36.0); Mean Corpuscular Hemoglobin 30.8 pg (27.0-31.0); Mean Corpuscular Volume 93.9 fL (78.0-98.0); Mean Platelet Volume 6.2 fL (7.4-10.4); Platelet Count 534 thou/uL (130-400); RBC Distribution Width 16.1 % (11.5-14.5); Red Blood Cell (RBC) Count 3.25 mill/uL (4.70-6.10); White Blood Cell (WBC) Count 11.5 thou/uL (4.8-10.8)
[2022-03-02 06:37] LABS: Calc. Creatinine Clearance 189 mL/min (70-130)
[2022-03-02] MEDS: HYDROmorphone 10 mg/100 ml CADD IVPB PRN (06:59)
[2022-03-02] MEDS: Polyethylene Glycol 3350 17 GM Packet PO SCH (07:25)
[2022-03-02] MEDS: Senokot S 8.6-50 MG TAB PER TUBE SCH ×2 (07:25→20:34)
[2022-03-02] MEDS: Famotidine 20 MG TAB PO SCH ×2 (08:17→20:36)
[2022-03-02] MEDS: Vancomycin 1.5 GRAM/300 ML BAG 1.5 GM in Premix Bag 1 BAG IVPB SCH ×4 (08:17→23:47)
[2022-03-02] MEDS: Pregabalin 50 MG CAP PO SCH ×2 (08:17→20:34)
[2022-03-02] MEDS: Enoxaparin Sodium 40 MG/0.4 ML SYRINGE SC SCH (08:18)
[2022-03-02] MEDS: Cyclobenzaprine 10 MG TAB PO PRN ×2 (08:19→20:36)
[2022-03-02] MEDS: Acetaminophen/Codeine 30-300mg Tablet PO SCH ×3 (14:11→23:48)
[2022-03-02] MEDS: Zolpidem Tartrate 5 MG TAB PO PRN (21:54)
[2022-03-03] MEDS: Acetaminophen/Codeine 30-300mg Tablet PO SCH ×3 (06:08→21:30)
[2022-03-03 06:24] LABS: #Basophils 0.1 thou/uL (0.0-0.2); #Eosinphils 0.4 thou/uL (0.0-0.7); #Lymphocytes 1.4 thou/uL (1.20-3.40); #Monocytes 1.3 thou/uL (0.11-0.59); #Neutrophils 5.5 thou/uL (1.40-6.50); %Basophils 0.6 % (0.0-1.0); %Eosinophils 4.3 % (0.0-10.0); %Lymphocytes 16.7 % (21.0-51.0); %Monocytes 14.5 % (0.0-10.0); %Neutrophils 63.9 % (42.0-75.0); Hemoglobin 10.6 g/dL (14.0-18.0); Mean Corpuscular HGB CONC 31.4 g/dL (32.0-36.0); Mean Corpuscular Hemoglobin 29.4 pg (27.0-31.0); Mean Corpuscular Volume 93.4 fL (78.0-98.0); Mean Platelet Volume 5.9 fL (7.4-10.4); Platelet Count 541 thou/uL (130-400); RBC Distribution Width 15.1 % (11.5-14.5); Red Blood Cell (RBC) Count 3.62 mill/uL (4.70-6.10); White Blood Cell (WBC) Count 8.6 thou/uL (4.8-10.8)
[2022-03-03 06:43] LABS: Calc. Creatinine Clearance 182 mL/min (70-130)
[2022-03-03] MEDS: Cyclobenzaprine 10 MG TAB PO PRN ×3 (07:20→22:10)
[2022-03-03 08:53] LABS: Vancomycin, Trough 16.2 ug/mL
[2022-03-03] MEDS: Famotidine 20 MG TAB PO SCH ×2 (09:42→21:30)
[2022-03-03] MEDS: Vancomycin 1.5 GRAM/300 ML BAG 1.5 GM in Premix Bag 1 BAG IVPB SCH ×2 (09:42→17:54)
[2022-03-03] MEDS: Pregabalin 50 MG CAP PO SCH ×2 (09:42→21:30)
[2022-03-03] MEDS: Enoxaparin Sodium 40 MG/0.4 ML SYRINGE SC SCH (09:43)
[2022-03-03] MEDS: Polyethylene Glycol 3350 17 GM Packet PO SCH (10:35)
[2022-03-03] MEDS: Senokot S 8.6-50 MG TAB PER TUBE SCH ×2 (10:35→21:30)
[2022-03-03] MEDS: traMADol HCl 50 MG TAB PO PRN (11:53)
[2022-03-03 14:15] VITALS: BMI 28.8
[2022-03-03] MEDS ORDERED: Bupivacaine PF 0.5% 30 ML VIAL ONE (16:39)
[2022-03-03] MEDS ORDERED: Bacitracin Zinc Ointment 30 gm TUBE ONE (16:39)
[2022-03-03] MEDS ORDERED: Thrombin 5000 UNITS/5 ML VIAL ONE (16:39)
[2022-03-03] MEDS ORDERED: Mineral Oil Sterile 10 ML VIAL ONE ×2 (16:39→18:34)
[2022-03-03] MEDS ORDERED: Neomycin-Polymyxin 1 ML AMP ONE ×2 (16:39→18:15)
[2022-03-03] MEDS ORDERED: Tobramycin Sulfate 1.2 GM VIAL ONE (16:43)
[2022-03-03] MEDS ORDERED: Midazolam HCl 2 mg/2 ml Vial ONE (17:25)
[2022-03-03] MEDS ORDERED: Fentanyl 100 MCG/2 ML VIAL ONE (17:25)
[2022-03-03] MEDS ORDERED: Famotidine/PF 20 mg/2ml Vial ONE (17:26)
[2022-03-03] MEDS ORDERED: Lidocaine 1% PF 5 ML VIAL ONE (17:27)
[2022-03-03] MEDS ORDERED: Ketorolac Tromethamine 30 MG/ML VIAL ONE (17:27)
[2022-03-03] MEDS ORDERED: PROPOFOL 200 MG/20 ML VIAL ONE (17:27)
[2022-03-03] MEDS ORDERED: Promethazine HCl 25 MG/ML VIAL IVPB PRN ×2 (18:21→20:24)
[2022-03-03] MEDS ORDERED: Meperidine HCl/PF 25 MG/ML VIAL SLOW IVP PRN (18:21)
[2022-03-03] MEDS ORDERED: HYDROmorphone 2 MG/ML VIAL SLOW IVP PRN ×2 (18:21→20:24)
[2022-03-03] MEDS ORDERED: Promethazine HCl 25 MG/ML VIAL IM PRN ×2 (18:21→20:24)
[2022-03-03] MEDS ORDERED: HYDROmorphone 0.5 MG/0.5 ML SYRINGE ONE (18:43)
[2022-03-03] MEDS ORDERED: Ondansetron HCl/PF 4 MG/2 ML Vial IVP PRN (20:24)
[2022-03-03] MEDS: Morphine 2 MG/ML VIAL SLOW IVP PRN (21:30)
[2022-03-03] MEDS ORDERED: HYDROmorphone 0.5 MG/0.5 ML SYRINGE SLOW IVP SCH (22:15)
[2022-03-04] MEDS: Vancomycin 1.5 GRAM/300 ML BAG 1.5 GM in Premix Bag 1 BAG IVPB SCH ×4 (00:30→23:15)
[2022-03-04] MEDS: Acetaminophen/Codeine 30-300mg Tablet PO SCH ×4 (00:30→18:54)
[2022-03-04] MEDS: Cyclobenzaprine 10 MG TAB PO PRN ×3 (06:30→23:15)
[2022-03-04 06:42] LABS: Calc. Creatinine Clearance 154 mL/min (70-130)
[2022-03-04] MEDS: Enoxaparin Sodium 40 MG/0.4 ML SYRINGE SC SCH (09:07)
[2022-03-04] MEDS: Senokot S 8.6-50 MG TAB PER TUBE SCH ×2 (09:12→21:12)
[2022-03-04] MEDS: Lisinopril 20 MG TAB PO SCH (09:12)
[2022-03-04] MEDS: Polyethylene Glycol 3350 17 GM Packet PO SCH (09:13)
[2022-03-04] MEDS: Pregabalin 50 MG CAP PO SCH ×2 (09:13→21:12)
[2022-03-04] MEDS: Famotidine 20 MG TAB PO SCH ×2 (09:14→21:12)
[2022-03-04 09:39] LABS: #Basophils 0.1 thou/uL (0.0-0.2); #Lymphocytes 0.7 thou/uL (1.20-3.40); #Monocytes 0.7 thou/uL (0.11-0.59); #Neutrophils 6.7 thou/uL (1.40-6.50); %Basophils 0.8 % (0.0-1.0); %Eosinophils 0.4 % (0.0-10.0); %Lymphocytes 8.3 % (21.0-51.0); %Monocytes 8.8 % (0.0-10.0); %Neutrophils 81.8 % (42.0-75.0); Hemoglobin 10.2 g/dL (14.0-18.0); Mean Corpuscular HGB CONC 31.4 g/dL (32.0-36.0); Mean Corpuscular Hemoglobin 29.1 pg (27.0-31.0); Mean Corpuscular Volume 92.8 fL (78.0-98.0); Platelet Count 619 thou/uL (130-400); Red Blood Cell (RBC) Count 3.51 mill/uL (4.70-6.10); White Blood Cell (WBC) Count 8.1 thou/uL (4.8-10.8)
[2022-03-04] MEDS: traMADol HCl 50 MG TAB PO PRN ×2 (14:07→21:12)
[2022-03-04] MEDS: Zolpidem Tartrate 5 MG TAB PO PRN (23:15)
[2022-03-05] MEDS: Acetaminophen/Codeine 30-300mg Tablet PO SCH ×4 (06:17→18:39)
[2022-03-05] MEDS: Cyclobenzaprine 10 MG TAB PO PRN ×3 (06:19→22:32)
[2022-03-05 06:21] LABS: Calc. Creatinine Clearance 172 mL/min (70-130)
[2022-03-05] MEDS: Vancomycin 1.5 GRAM/300 ML BAG 1.5 GM in Premix Bag 1 BAG IVPB SCH ×2 (08:48→16:29)
[2022-03-05] MEDS: Polyethylene Glycol 3350 17 GM Packet PO SCH (08:48)
[2022-03-05] MEDS: traMADol HCl 50 MG TAB PO PRN ×3 (08:49→22:33)
[2022-03-05] MEDS: Senokot S 8.6-50 MG TAB PER TUBE SCH ×2 (08:49→20:42)
[2022-03-05] MEDS: Lisinopril 20 MG TAB PO SCH (08:50)
[2022-03-05] MEDS: Pregabalin 50 MG CAP PO SCH ×2 (08:51→20:39)
[2022-03-05] MEDS: Saccharomyces boulardii 250 MG CAP PO SCH (08:51)
[2022-03-05] MEDS: Famotidine 20 MG TAB PO SCH ×2 (08:51→20:39)
[2022-03-05] MEDS: Enoxaparin Sodium 40 MG/0.4 ML SYRINGE SC SCH (08:55)
[2022-03-05] MEDS: Clindamycin 150 MG CAP PO SCH (20:42)
[2022-03-05] MEDS: Morphine 2 MG/ML VIAL SLOW IVP PRN (22:32)
[2022-03-05] MEDS: Zolpidem Tartrate 5 MG TAB PO PRN (22:33)
[2022-03-06] MEDS: Acetaminophen/Codeine 30-300mg Tablet PO SCH ×3 (01:48→13:34)
[2022-03-06 05:50] LABS: Calc. Creatinine Clearance 188 mL/min (70-130)
[2022-03-06] MEDS: Clindamycin 150 MG CAP PO SCH ×2 (06:50→13:35)
[2022-03-06] MEDS: Pregabalin 50 MG CAP PO SCH (08:59)
[2022-03-06] MEDS: Enoxaparin Sodium 40 MG/0.4 ML SYRINGE SC SCH (08:59)
[2022-03-06] MEDS: Famotidine 20 MG TAB PO SCH (09:00)
[2022-03-06] MEDS: Lisinopril 20 MG TAB PO SCH (09:00)
[2022-03-06] MEDS: Saccharomyces boulardii 250 MG CAP PO SCH (09:00)
[2022-03-06] MEDS: Senokot S 8.6-50 MG TAB PER TUBE SCH (09:01)
[2022-03-06] MEDS: Polyethylene Glycol 3350 17 GM Packet PO SCH (09:01)
[2022-03-06] MEDS: traMADol HCl 50 MG TAB PO PRN (11:05)
[2022-03-06 12:29] VITALS: BP 151/87; TEMP 98.4
== END 2022-03-06 14:45 | disposition home or self-care (01) | DRG 958 ==
LOC: ERS 16:36 → SDC/OP 18:00 → IMCU/EMU 21:02 → SURG A 02-17 16:10
PROVIDERS: ADMIT Specialist; ATTEND Surgery
PROC: 0QSH05Z Reposition Left Tibia with External Fixation Device, Open Approach (ICD-10-PCS; principal; 2022-02-16)
PROC: 0KNR0ZZ Release Left Upper Leg Muscle, Open Approach (ICD-10-PCS; 2022-02-16)
PROC: 0QS5XZZ Reposition Left Acetabulum, External Approach (ICD-10-PCS; 2022-02-16)
PROC: B44GZZZ Ultrasonography of Left Lower Extremity Arteries (ICD-10-PCS; 2022-02-16)
PROC: 0QS504Z Reposition Left Acetabulum with Internal Fixation Device, Open Approach (ICD-10-PCS; 2022-02-20)
PROC: 0QSH06Z Reposition Left Tibia with Intramedullary Internal Fixation Device, Open Approach (ICD-10-PCS; 2022-02-20)
PROC: 0QSK04Z Reposition Left Fibula with Internal Fixation Device, Open Approach (ICD-10-PCS; 2022-02-20)
PROC: 30233N1 Transfusion of Nonautologous Red Blood Cells into Peripheral Vein, Percutaneous Approach (ICD-10-PCS; 2022-02-20)
PROC: 0QPHX5Z Removal of External Fixation Device from Left Tibia, External Approach (ICD-10-PCS; 2022-02-20)
PROC: 0KCT0ZZ Extirpation of Matter from Left Lower Leg Muscle, Open Approach (ICD-10-PCS; 2022-02-24)
PROC: 0QBK0ZZ Excision of Left Fibula, Open Approach (ICD-10-PCS; 2022-02-24)
PROC: 0QBH0ZZ Excision of Left Tibia, Open Approach (ICD-10-PCS; 2022-02-24)
PROC: 0QBK0ZZ Excision of Left Fibula, Open Approach (ICD-10-PCS; 2022-02-27)
PROC: 0QBH0ZZ Excision of Left Tibia, Open Approach (ICD-10-PCS; 2022-02-27)
PROC: 3E0V329 Introduction of Other Anti-infective into Bones, Percutaneous Approach (ICD-10-PCS; 2022-02-27)
PROC: 3E0V329 Introduction of Other Anti-infective into Bones, Percutaneous Approach (ICD-10-PCS; 2022-03-03)
PROC: 0QDK0ZZ Extraction of Left Fibula, Open Approach (ICD-10-PCS; 2022-03-03)
PROC: 0QDH0ZZ Extraction of Left Tibia, Open Approach (ICD-10-PCS; 2022-03-03)
DX: S82.252B Displaced comminuted fracture of shaft of left tibia, initial encounter for open fracture type I or II (principal); S32.462A Displaced associated transverse-posterior fracture of left acetabulum, initial encounter for closed fracture; D62 Acute posthemorrhagic anemia; T79.A22A Traumatic compartment syndrome of left lower extremity, initial encounter; S27.321A Contusion of lung, unilateral, initial encounter; Z20.822 Contact with and (suspected) exposure to COVID-19; S82.452B Displaced comminuted fracture of shaft of left fibula, initial encounter for open fracture type I or II; T79.6XXA Traumatic ischemia of muscle, initial encounter; S43.122A Dislocation of left acromioclavicular joint, 100%-200% displacement, initial encounter; I10 Essential (primary) hypertension; E83.42 Hypomagnesemia; E83.41 Hypermagnesemia; D72.829 Elevated white blood cell count, unspecified; Z88.1 Allergy status to other antibiotic agents; Z88.2 Allergy status to sulfonamides; Z79.890 Hormone replacement therapy; V29.40XA Motorcycle driver injured in collision with unspecified motor vehicles in traffic accident, initial encounter; Y92.410 Unspecified street and highway as the place of occurrence of the external cause
CPT/HCPCS: 31500; 36415; 36430; 36600; 51702; 70450; 71045; 71260; 72125; 72170; 74177; 75635; 76000; 80048; 80202; 82550; 82565; 82805; 83605; 83735; 84100; 84484; 85025; 85652; 86140; 86850; 86900; 86901; 87070; 87077; 87186; 87205; 88304; 88311; 94002; 94640; 96365; 96368; 96375; C1713; C1776; G0390; J0690; J1100; J1170; J1644; J1650; J1885; J1956; J2175; J2250; J2270; J2405; J2543; J2704; J2720; J2765; J3010; J3260; J3370; J3475; J3490; J7050; J7120; J7611; P9016; P9045; Q0162; Q9967; S0020; S0028; U0002; U0003; U0005

== ENCOUNTER 2022-06-24 18:08 | Outpatient (CLI) | payer SELFPAY | END 2022-06-24 18:09 | disposition home or self-care (01) | LOC: LABBT 18:08 | PROVIDERS: ATTEND Orthopaedic Surgery | DX: S82.202A Unspecified fracture of shaft of left tibia, initial encounter for closed fracture (principal); Z20.822 Contact with and (suspected) exposure to COVID-19 | CPT/HCPCS: 87811 ==

== ENCOUNTER 2022-08-12 10:31 | Day surgery (SDC) | payer OTHER, SELFPAY ==
[2022-08-11 14:39] VITALS: BMI 29.4
[2022-08-12] MEDS ORDERED: fentaNYL Citrate/PF 100 MCG/2 ML SYRINGE ONE (12:05)
[2022-08-12] MEDS ORDERED: Levofloxacin 500 mg/D5W 100 ml Premix Bag ONE (12:37)
[2022-08-12] MEDS ORDERED: Clindamycin/D5W 900 mg/50 ml Premix Bag ONE (12:37)
[2022-08-12] MEDS ORDERED: Dexamethasone 20 MG/5 ML VIAL ONE (12:58)
[2022-08-12] MEDS ORDERED: Esmolol 100 MG/10 ML VIAL ONE (12:58)
[2022-08-12] MEDS ORDERED: Ondansetron PF 4 MG/2 ML Vial ONE (12:58)
[2022-08-12] MEDS ORDERED: PROPOFOL 200 MG/20 ML VIAL ONE (12:58)
[2022-08-12] MEDS ORDERED: Ketorolac Tromethamine 30 MG/ML VIAL ONE (12:58)
[2022-08-12] MEDS ORDERED: Midazolam HCl 2 mg/2 ml Vial ONE (13:15)
[2022-08-12] MEDS ORDERED: Meperidine HCl/PF 25 MG/ML VIAL ONE (15:13)
[2022-08-12] MEDS ORDERED: FENTANYL 50 MCG/ML VIAL 50 MCG/ML VIAL ONE ×2 (15:27→15:45)
[2022-08-12] MEDS ORDERED: HYDROcodone/Acetaminophen 5/325 mg Tablet ONE (16:23)
== END 2022-08-12 17:46 | disposition home or self-care (01) ==
LOC: SDC 10:31
PROVIDERS: ATTEND Orthopaedic Surgery
PROC: 0QSH06Z Reposition Left Tibia with Intramedullary Internal Fixation Device, Open Approach (ICD-10-PCS; principal; 2022-08-12)
PROC: 3E0V0GB Introduction of Recombinant Bone Morphogenetic Protein into Bones, Open Approach (ICD-10-PCS; principal; 2022-08-12)
DX: S82.232 Displaced oblique fracture of shaft of left tibia (principal); I10 Essential (primary) hypertension; Z79.811 Long term (current) use of aromatase inhibitors; Z79.899 Other long term (current) drug therapy; Z88.1 Allergy status to other antibiotic agents; Z88.2 Allergy status to sulfonamides; Z88.8 Allergy status to other drugs, medicaments and biological substances; V29.99XD Rider (driver) (passenger) of other motorcycle injured in unspecified traffic accident, subsequent encounter
CPT/HCPCS: C1713; C1769; J1100; J1885; J1956; J2175; J2250; J2405; J2704; J3490